=== PATIENT | female | born 1965 | race African-American/Black ===

== ENCOUNTER 2020-03-26 10:30 | Inpatient (IN) | payer BC, OTHER ==
--- OUTSIDE RECORDS SUMMARY | 2020-03-26 10:35 | XMS REPORT | Continuity of Care Document ---
:1965 Author Organization [facility] t Address [address] [place] [address] Care Team Providers Name Role Phone Unavailable Unavailable Unavailable Problems Condition Condition Condition Status Onset Resolution Last Treating Co mments Source Name Details Category Date Date Treatment Clinician Date Essential Essential Problem Active [facility] hypertensi Hypertensi [facility] Menopause Menopause Problem Active [facility] present [facility] Allergies, Adverse Reactions, Alerts This patient has no known allergies or adverse reactions. Social History Smoking Status Start Date Stop Date Source Never Smoker [facility] Medications Ordered Filled Start Stop Current Ordering Indication Dosage Frequency Signature Comments Components Source Medication Medication Date Date Medication? Clinician (SIG) Name Name amlodipine amlodipine No amlodipine [facility] 5 mg tablet 5 mg tablet 5 mg d a tablet [facility] aspirin 325 aspirin 325 No 1 Q1D aspirin [facility] mg tablet mg tablet 325 mg da Take 1 Take 1 tablet Medical tablet tablet Take 1 Group every day every day tablet by oral by oral every day route. route. by oral route. bumetanide bumetanide No bumetanide [facility] 2 mg tablet 2 mg tablet 2 mg d a tablet [facility] carvedilol carvedilol No carvedilol [facility] 25 mg 25 mg 25 mg da tablet tablet tablet [facility] clonidine clonidine No clonidine [facility] HCl 0.2 mg HCl 0.2 mg HCl 0.2 mg da tablet tablet tablet [facility] clonidine clonidine No clonidine [facility] HCl 0.3 mg HCl 0.3 mg HCl 0.3 mg da tablet tablet tablet [facility] Vital Signs Vital Name Observation Time Observation Value Comments Source BP Diastolic 2019-01-01 00:00:00 102 mm[Hg] [facility] Height 2019-01-01 00:00:00 66 [in_i] [facility] BMI (Body Mass 2019-01-01 00:00:00 40.9 kg/m2 [facility] Index) Group BP Systolic 2019-01-01 00:00:00 162 mm[facility]Hg[facility] Body Weight 2019-01-01 00:00:00 253.6 [lb_av] [facility] Procedures Procedure Date / Time Performed Performing Clinician Sour e unlisted imaging order 2019-01-01 00:00:00 [facility] Hysterectomy 2010-05-15 00:00:00 [facility] Plan of Care Planned Activity Planned Date Details Comments Source Diagnostic Test 2019-01-01 wet mount, vaginal [facility] Pending 00:00:00 [code = wet mount, Group vaginal] Diagnostic Test 2019-01-01 pap test, [facility] 00:00:00 thinprep, cervical Group [code = pap test, thinprep, cervical] Diagnostic Test 2019-01-01 urinalysis, [facility] 00:00:00 dipstick [code = Group urinalysis, dipstick] Encounters Start End Encounter Admission Attending Care Care Encounter Source Date/Time Date/Time Type Type Clinicians Facility Department ID 2019-01-01 2019-01-01 [facility] [place] - [id number] [facility] 00:00:00 00:00:00 [facility] MD: [address] [facility] [address], [place] [address] , Ph. [phone] Results Test Description Test Time Test Comments Results Result Comments Source Urinalysis macro (dipstick) panel - Urine 2019-01-01 10:18:3 4 Test Item Value Reference Range Interpretation Comme nts Leukocytes (test code = Leukocytes) Negative Nitrite (test code = Nitrite) negative Urobilinogen (test code = Urobilinogen) .2 Protein (test code = Protein) Negative pH (test code = pH) 6.0 Blood (test code = Blood) Negative Specific Mchenry (test code = Specific Mchenry) 1.015 Ketone (test code = Ketone) Negative Bilirubin (test code = Bilirubin) Negative Glucose (test code = Glucose) Negative Appearance (test code = Appearance) Clear Color (test code = Color) Yellow [facility]
[2020-03-26 12:22] LABS: Absolute Lymphocytes (CBC) 0.8 K/uL (0.7-4.9); Basophils % 0.5 % (0-1.3); Hematocrit 42.3 % (36.0-45.0); MPV 8.9 fL (7.6-11.3); RBC Red Blood Cell Count 4.88 M/uL (3.86-4.86)
[2020-03-26 12:37] LABS: Protime INR 1.22
--- NOTE | 2020-03-26 12:43 | RAD REPORT ---
EXAM DESCRIPTION: RAD - Chest Single View - 03/26/2020 12:30 pm CLINICAL HISTORY: SOB Chest pain. COMPARISON: Chest Pa And Lat (2 Views) dated 05/10/2018; Chest Single View dated 02/01/2017; CHEST PA AND LAT 2 VIEW dated 09/26/2007 FINDINGS: Portable technique limits examination quality. Minimal interstitial pulmonary edema. Heart is significantly prominent. No displaced fractures. IMPRESSION: Mild CHF versus volume overload.
[2020-03-26 12:51] LABS: ALT/SGPT 24 U/L (12-78); AST/SGOT 21 U/L (15-37); Alkaline Phosphatase 73 U/L (45-117); BUN Blood Urea Nitrogen 17 mg/dL (7-18); Bicarbonate 40 mmol/L (21-32); Bilirubin Direct 0.4 mg/dL (0-0.2); Glucose Level 104 mg/dL (74-106); Magnesium 2.2 mg/dL (1.8-2.4); NT PRO-BNP 1130 pg/mL (<125); Potassium 3.4 mmol/L (3.5-5.1); Protein, Total 8.2 g/dL (6.4-8.2); Sodium Level 139 mmol/L (136-145); Troponin (Emerg Dept Use Only) 0.31 ng/mL (0.0-0.045)
--- NOTE | 2020-03-26 15:00 | EDPHYS ---
Physician Documentation [facility] Name: Indra Larsen Age: 55 yrs Sex: Female : 1965 Arrival Date: 03/26/2020 Time: 10:37 Bed 24 Private MD: Torsten Sanders V ED Physician Mick Washington HPI: 03/26 18:15 This 55 yrs old Black Female presents to ER via Wheelchair with complaints of Shortness kdr Of Breath. 18:15 The patient has shortness of breath at rest, with light activity, that occurred at [facility] home. Onset: The symptoms/episode began/occurred gradually, 4 day(s) ago. Duration: The symptoms are continuous, and are steadily getting worse. The patient's shortness of breath is aggravated by coughing, exertion, light activity, walking, is alleviated by rest. 18:19 Associated signs and symptoms: Pertinent positives: Pertinent negatives: productive kdr cough, diaphoresis, loss of consciousness, numbness in extremities, visual changes. Severity of symptoms: At their worst the symptoms were mild in the emergency department the symptoms. The patient has experienced similar episodes in the past, a few times. The patient has not recently seen a physician. 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 - Social history:: Smoking status: Patient denies any tobacco usage or history of. ROS: 18:19 Constitutional: Negative for fever, chills, and weight loss, Eyes: Negative for injury, kdr pain, redness, and discharge, Neck: Negative for injury, pain, and swelling, Cardiovascular: Negative for chest pain, palpitations, and edema, Abdomen/GI: Negative for abdominal pain, nausea, vomiting, diarrhea, and constipation, Back: Negative for injury and pain, : Negative for injury, bleeding, discharge, and swelling, MS/Extremity: Negative for injury and deformity, Skin: Negative for injury, rash, and discoloration, Neuro: Negative for headache, weakness, numbness, tingling, and seizure activity. Psych: Negative for depression, anxiety, suicide ideation, homicidal ideation, and hallucinations, Allergy/Immunology: Negative for hives, rash, and allergies, Endocrine: Negative for neck swelling, polydipsia, polyuria, polyphagia, and marked weight changes, Hematologic/Lymphatic: Negative for swollen nodes, abnormal bleeding, and unusual bruising. 18:19 Respiratory: Positive for dyspnea on exertion, shortness of breath, Negative for hemoptysis, orthopnea, pleurisy, sputum production. Exam: 18:19 Constitutional: This is a well developed, well nourished patient who is awake, alert, kdr and in no acute distress. Head/Face: Normocephalic, atraumatic. Eyes: Pupils equal round and reactive to light, extra-ocular motions intact. Lids and lashes normal. Conjunctiva and sclera are non-icteric and not injected. Cornea within normal limits. Periorbital areas with no swelling, redness, or edema. Neck: Trachea midline, no thyromegaly or masses palpated, and no cervical lymphadenopathy. Supple, full range of motion without nuchal rigidity, or vertebral point tenderness. No Meningismus. Chest/axilla: Normal chest wall appearance and motion. Nontender with no deformity. No lesions are appreciated. Cardiovascular: Regular rate and rhythm with a normal S1 and S2. No gallops, murmurs, or rubs. Normal PMI, no JVD. No pulse deficits. Abdomen/GI: Soft, non-tender, with normal bowel sounds. No distension or tympany. No guarding or rebound. No evidence of tenderness throughout. Back: No spinal tenderness. No costovertebral tenderness. Full range of motion. Skin: Warm, dry with normal turgor. Normal color with no rashes, no lesions, and no evidence of cellulitis. MS/ Extremity: Pulses equal, no cyanosis. Neurovascular intact. Full, normal range of motion. Neuro: Awake and alert, GCS 15, oriented to person, place, time, and situation. Cranial nerves II-XII grossly intact. Motor strength 5/5 in all extremities. Sensory grossly intact. Cerebellar exam normal. Normal gait. Psych: Awake, alert, with orientation to person, place and time. Behavior, mood, and affect are within normal limits. 18:19 Respiratory: the patient does not display signs of respiratory distress, Respirations: Breath sounds: are clear throughout, The patient had a hypoxia to 70's with exertion. 18:39 ECG was reviewed by the Attending Physician. [facility] Vital Signs: 10:57 BP 166 / 115; Pulse 82; Resp 18; Temp 97.5; Pulse Ox 86% on R/A; Pain 0/10; hb 14:00 BP 161 / 87; Pulse 67; Resp 18 S; Temp 98.4(O); Pulse Ox 98% on 2 lpm NC; aa5 16:00 BP 152 / 79; Pulse 70; Resp 18 S; Pulse Ox 100% on 2 lpm NC; aa5 18:00 BP 149 / 94; Pulse 83; Resp 18; Pulse Ox 97% on 3 lpm NC; vg1 19:45 BP 126 / 76; Pulse 73; Resp 18; Pulse Ox 100% on 2 lpm NC; wh 21:00 BP 105 / 64; Pulse 69; Resp 18; Pulse Ox 98% on 2 lpm NC; wh 22:30 BP 91 / 53; Pulse 68; Resp 18; Pulse Ox 98% on 2 lpm NC; 03/27 02:01 Weight 112.94 kg (M); bb MDM: 03/26 14:59 Patient medically screened. [facility] 18:27 Data reviewed: vital signs, nurses notes, lab test result(s), radiologic studies. [facility] 03/26 11:51 Order name: Basic Metabolic Panel; Complete Time: 14:40 [facility] 03/26 11:51 Order name: CBC with Diff; Complete Time: 14:40 [facility] 03/26 11:51 Order name: LFT's; Complete Time: 14:40 [facility] 03/26 11:51 Order name: Magnesium; Complete Time: 14:40 [facility] 03/26 11:51 Order name: NT PRO-BNP; Complete Time: 14:40 [facility] 03/26 11:51 Order name: PT-INR; Complete Time: 14:40 [facility] 03/26 11:51 Order name: Troponin (emerg Dept Use Only); Complete Time: 14:40 [facility] 03/26 11:51 Order name: XRAY Chest (1 view); Complete Time: 14:40 [facility] 03/26 14:29 Order name: Urine Dipstick--Ancillary (enter results) 03/26 14:57 Order name: CT Chest For PE Angio; Complete Time: 15:44 kdr 03/26 16:45 Order name: SARS-COV-2 RT PCR EDIN 03/27 02:59 Order name: Troponin I [facility] 03/27 06:38 Order name: Troponin I [facility] 03/26 11:51 Order name: EKG; Complete Time: 11:52 dm5 03/26 11:51 Order name: Cardiac monitoring; Complete Time: 12:16 dm5 03/26 11:51 Order name: EKG - Nurse/Tech; Complete Time: 12:16 dm5 03/26 11:51 Order name: IV Saline Lock; Complete Time: 12:32 dm5 03/26 11:51 Order name: Labs collected and sent; Complete Time: 12:32 dm5 03/26 11:51 Order name: O2 Per Protocol; Complete Time: 12:16 dm5 03/26 11:51 Order name: O2 Sat Monitoring; Complete Time: 12:16 5 03/26 12:28 Order name: Labs - recollect needed: recollect c7; Complete Time: 12:31 bd 03/26 14:15 Order name: Urine Dipstick-Ancillary (obtain specimen); Complete Time: 14:15 aa 03/26 16:38 Order name: Diet Heart Healthy; Complete Time: 16:39 aa5 EC:39 Rate is 69 beats/min. Rhythm is regular, Sinus Rhythm with No ectopy. QRS [place] is kdr Normal. CA interval is normal. QRS interval is normal. Clinical impression: NSR w/ Non-specific ST/T Changes. Administered Medications: 16:10 Drug: Lasix 40 mg Route: IVP; Site: left antecubital; aa5 17:30 Follow up: Response: No adverse reaction vg1 16:10 Drug: Aspirin Chewable Tablet 324 mg Route: PO; aa5 17:30 Follow up: Response: No adverse reaction vg1 16:10 Drug: PlaVIX 300 mg Route: PO; aa5 17:30 Follow up: Response: No adverse reaction vg1 Disposition: 03/26/20 14:59 Hospitalization ordered by Torsten Sanders for Observation. Preliminary diagnosis are Shortness of breath, Hypoxia on exertion (75%). - Bed requested for Telemetry/MedSurg (observation). - Status is Observation. eb - Condition is Fair. - Problem is new. - Symptoms have improved. Signatures: Dispatcher [employer] EDMS Mi Emerson Corinne Arboleda, RN RN dm5 Mick Washington MD MD [facility] Sanjuana Neal, RN RN aa5 Marysol Romero, RN RN Jacquelin Padilla, RN RN Xiomy Hayes, Shelly RN vg1 Corrections: (The following items were deleted from the chart) 15:18 14:43 CORONAVIRUS+MR.LAB.BRZ ordered. EDMS EDMS 22:42 14:59 Hospitalization Ordered by Torsten Sanders MD for Observation. Preliminary diagnosis cg is Shortness of breath; Hypoxia on exertion (75%). Bed requested for Telemetry/MedSurg (observation). Status is Observation. Condition is Fair. Problem is new. Symptoms have improved. kdr 03/27 07:30 11 22:42 03/26/2020 14:59 Hospitalization Ordered by Torsten Sanders MD for eb Observation. Preliminary diagnosis is Shortness of breath; Hypoxia on exertion (75%). Bed requested for [facility] ER HOLD. Status is Observation. Condition is Fair. Problem is new. Symptoms have improved. cg 03/27 07:56 07:30 03/26/2020 14:59 Hospitalization Ordered by Torsten Sanders MD for Observation. eb Preliminary diagnosis is Shortness of breath; Hypoxia on exertion (75%). Bed requested for Telemetry/MedSurg (observation). Status is Observation. Condition is Fair. Problem is new. Symptoms have improved. eb
--- NOTE | 2020-03-26 15:00 | ER ---
Nurse's Notes [facility] Name: Indra Larsen Age: 55 yrs Sex: Female : 1965 Arrival Date: 03/26/2020 Time: 10:37 Bed 24 Private MD: Torsten Sanders V Diagnosis: Shortness of breath;Hypoxia on exertion (75%) Presentation: 03/26 10:57 Chief complaint: SOB x 4 days. Hx of CHF. Coronavirus screen: At this time, the client hb does not indicate any symptoms associated with coronavirus-19. Ebola Screen: No symptoms or risks identified at this time. Initial Sepsis Screen: Does the patient meet any 2 criteria? No. Patient's initial sepsis screen is negative. Does the patient have a suspected source of infection? No. Patient's initial sepsis screen is negative. Risk Assessment: Do you want to hurt yourself or someone else? Patient reports no desire to harm self or others. Onset of symptoms was March 23, 2020. 10:57 Method Of Arrival: Wheelchair hb 10:57 Acuity: TRUDI 2 hb Triage Assessment: 19:30 Respiratory: Onset: The symptoms/episode began/occurred gradually, the patient has mild wh shortness of breath. 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 - Social history:: Smoking status: Patient denies any tobacco usage or history of. Screenin:05 Abuse screen: Denies threats or abuse. Nutritional screening: No deficits noted. aa5 Tuberculosis screening: No symptoms or risk factors identified. Fall Risk None identified. Assessment: 14:05 General: Appears comfortable, Behavior is calm, cooperative. Pain: Denies pain. Neuro: aa5 Level of Consciousness is awake, alert, obeys commands, Oriented to person, place, time, situation. Cardiovascular: Reports intermittent lower leg swelling after sitting for long periods of time at work. No leg swelling noted at this time. Heart tones S1 S2 present Rhythm is sinus rhythm. Respiratory: Reports shortness of breath on exertion Airway is patent Respiratory effort is even, unlabored, Respiratory pattern is regular, symmetrical, Breath sounds are diminished bilaterally. GI: Abdomen is round obese, Bowel sounds present X 4 quads. Abd is soft and non tender X 4 quads. : No signs and/or symptoms were reported regarding the genitourinary system. EENT: No signs and/or symptoms were reported regarding the EENT system. Derm: Skin is dry, Skin is normal, Skin temperature is warm. Musculoskeletal: Range of motion: intact in all extremities. 15:05 Reassessment: Pt to CT via stretcher . aa5 16:05 Reassessment: Dr. Washington speaking to patient about need for admission. . aa5 16:05 Neuro: Level of Consciousness is awake, alert, obeys commands, Oriented to person, aa5 place, time, situation. Cardiovascular: Rhythm is sinus rhythm. Respiratory: Airway is patent Respiratory effort is even, unlabored, Respiratory pattern is regular, symmetrical. Derm: Skin is dry, Skin is normal, Skin temperature is warm. 16:30 Reassessment: Pt assisted to bedside commode. Pt's O2 sat was noted to be 90% via 2 L aa5 NC upon getting out of bed, pt denies increased SOB at this time. Pt placed back in bed. Awaiting room assignment, pt notified of wait time. . 17:30 General: Appears in no apparent distress. comfortable, Behavior is calm, cooperative. em Pain: Denies pain. Neuro: Level of Consciousness is awake, alert, obeys commands, Oriented to person, place, time, situation, Gait is steady. Respiratory: Reports shortness of breath on exertion Airway is patent Respiratory effort is even, unlabored, Respiratory pattern is regular, symmetrical. Derm: Skin is intact, is healthy with good turgor, Skin is pink, warm \T\ dry. Musculoskeletal: Range of motion: intact in all extremities. 19:15 General: Appears in no apparent distress. Behavior is calm, cooperative, appropriate wh for age. Pain: Denies pain. Neuro: Level of Consciousness is awake, alert, obeys commands, Oriented to person, place, time, situation, Appropriate for age. Cardiovascular: Heart tones S1 S2. Respiratory: Airway is patent Respiratory effort is even, unlabored, Respiratory pattern is regular, symmetrical, Breath sounds are diminished bilaterally. GI: Abdomen is round obese, Abd is soft and non tender. : No signs and/or symptoms were reported regarding the genitourinary system. EENT: No signs and/or symptoms were reported regarding the EENT system. Derm: Skin is intact, is healthy with good turgor, Skin is pink, warm \T\ dry. normal. Musculoskeletal: Circulation, motion, and sensation intact. 21:00 Reassessment: Patient appears in no apparent distress at this time. No changes from previously documented assessment. Patient and/or family updated on plan of care and expected duration. Pain level reassessed. Patient is alert, oriented x 3, equal unlabored respirations, skin warm/dry/pink. 22:30 Reassessment: Patient appears in no apparent distress at this time. Patient and/or family updated on plan of care and expected duration. Pain level reassessed. Patient is alert, oriented x 3, equal unlabored respirations, skin warm/dry/pink. Vital Signs: 10:57 BP 166 / 115; Pulse 82; Resp 18; Temp 97.5; Pulse Ox 86% on R/A; Pain 0/10; hb 14:00 BP 161 / 87; Pulse 67; Resp 18 S; Temp 98.4(O); Pulse Ox 98% on 2 lpm NC; aa5 16:00 BP 152 / 79; Pulse 70; Resp 18 S; Pulse Ox 100% on 2 lpm NC; aa5 18:00 BP 149 / 94; Pulse 83; Resp 18; Pulse Ox 97% on 3 lpm NC; vg1 19:45 BP 126 / 76; Pulse 73; Resp 18; Pulse Ox 100% on 2 lpm NC; wh 21:00 BP 105 / 64; Pulse 69; Resp 18; Pulse Ox 98% on 2 lpm NC; wh 22:30 BP 91 / 53; Pulse 68; Resp 18; Pulse Ox 98% on 2 lpm NC; 03/27 02:01 Weight 112.94 kg (M); bb ED Course: 03/26 10:37 Patient arrived in ED. rg4 10:37 Torsten Sanders MD is Private Physician. rg4 10:58 Triage completed. hb 10:59 Arm band placed on. hb 11:13 Mick Washington MD is Attending Physician. kdr 11:51 Corinne Reina, RN is Primary Nurse. dm5 12:11 EKG done, by ED staff, reviewed by Mick Washington MD. jp3 12:16 Placed in gown. Bed in low position. Call light in reach. Side rails up X 1. Warm jp3 blanket given. Verbal reassurance given. library monitor on. Pulse ox on. NIBP on. 12:16 Oxygen administration via nasal cannula \T\ 2L/min. jp3 12:33 XRAY Chest (1 view) In Process Unspecified. EDMS 14:00 Report received from NICOLA Sun. aa5 14:48 No provider procedures requiring assistance completed. aa5 14:58 Torsten Sanders MD is Hospitalizing Provider. kdr 15:02 COVID-19 swab collected and sent to lab. aa5 15:16 CT Chest For PE Angio In Process Unspecified. EDMS 17:30 Report given to Adolfo Morton RN. aa5 22:30 Patient admitted, IV remains in place. Administered Medications: 16:10 Drug: Lasix 40 mg Route: IVP; Site: left antecubital; aa5 17:30 Follow up: Response: No adverse reaction vg1 16:10 Drug: Aspirin Chewable Tablet 324 mg Route: PO; aa5 17:30 Follow up: Response: No adverse reaction vg1 16:10 Drug: PlaVIX 300 mg Route: PO; aa5 17:30 Follow up: Response: No adverse reaction vg1 Outcome: 14:59 Decision to Hospitalize by Provider. kdr 22:30 Admitted to ER Hold. Please see [facility] for further documentation. 22:30 Condition: stable 22:30 Instructed on the need for admit. 03/27 07:56 Patient left the ED. eb Signatures: Dispatcher [employer] EDAK Corinne Reina, NICOLA RN dmMick Lu MD MD kdr Munoz, Edgar, Basia Thomas RN RN Sanjuana Daniel, RN RN aa5 Jacquelin Padilla, Grace Hale RN 4 Wally Mai Xiomy Hayes Suman Andersen jp3 Shelly Romero, RN RN vg1 Corrections: (The following items were deleted from the chart) 03/26 14:48 14:05 Cardiovascular: Reports intermittent lower leg swelling after sitting for long aa5 periods of time at work. Heart tones S1 S2 present Rhythm is sinus rhythm aa5 16:16 14:00 BP 161 / 87; Pulse 67bpm; Resp 18bpm; Spontaneous; Pulse Ox 98% RA; Temp 98.4F aa5 Oral; aa5 20:07 19:45 BP 126 / 76; Pulse 73bpm; Resp 18bpm; Pulse Ox 100% RA; [facility] 23:47 23:46 Respiratory: Onset: The symptoms/episode began/occurred [facility]
--- NOTE | 2020-03-26 15:30 | RAD REPORT ---
EXAM DESCRIPTION: CT - Chest For Pe Angio - 03/26/2020 3:16 pm CLINICAL HISTORY: sob COMPARISON: 2016 TECHNIQUE: Dynamically enhanced axial 3 mm thick images of the chest were obtained during administra tion of <100> mL Isovue 370 IV contrast. Coronal and oblique reconstruction images were generated and reviewed. Exam utilizes a protocol for optimal evaluation of pulmonary arterial tree. Maximum intensity projections 3D imaging was utilized All CT scans are performed using dose optimization technique as appropriate and may include automated exposure control or mA/KV adjustment according to patient size. FINDINGS: A pulmonary embolus is not seen. A thoracic aortic aneurysm is not noted. The heart is moderately to markedly enlarged A pleural effusion is not seen. A small to moderate pericardial effusion is seen. Mild bilateral ground-glass opacities IMPRESSION: Negative for a pulmonary embolism. Mild pulmonary ground-glass bilaterally may indicate mild pulmonary edema Small to moderate pericardial effusion
[2020-03-26] MEDS ORDERED: FUROSEMIDE 40 MG/4 ML VIAL ONE (16:01)
[2020-03-26] MEDS ORDERED: CLOPIDOGREL 75 MG TABLET ONE (16:16)
[2020-03-26] MEDS ORDERED: ASPIRIN 81 MG CHEWABLE TABLET ONE (16:16)
[2020-03-26 16:53] LABS: Urine Blood NEGATIVE (NEG); Urine Glucose NEGATIVE (NEG); Urine Protein NEGATIVE (NEG); Urine Specific Gravity 1.015 (1.005-1.030)
[2020-03-27] MEDS ORDERED: ALBUTEROL 2.5 MG/3 ML NEB SOL NEB PRN ×2 (02:08→17:00)
[2020-03-27] MEDS ORDERED: ONDANSETRON 4 MG/2 ML VIAL IV PRN (02:08)
[2020-03-27] MEDS ORDERED: MORPHINE 2 MG/ML SYR IV PRN (02:08)
[2020-03-27] MEDS ORDERED: IPRATROPIUM BROM 0.5MG/2.5ML NEB PRN (02:08)
[2020-03-27] MEDS ORDERED: ACETAMINOPHEN 500 MG TAB PO PRN (02:08)
[2020-03-27] MEDS ORDERED: ENOXAPARIN 100 MG/ML SYR SQ ONE (02:21)
[2020-03-27] MEDS: carvediloL 3.125 MG TAB PO SCH ×2 (06:00→17:29)
[2020-03-27] MEDS: FUROSEMIDE 20 MG/ 2ML VIAL IV SCH ×2 (08:18→17:30)
[2020-03-27] MEDS: ASPIRIN EC 81 MG TAB PO SCH (08:18)
[2020-03-27] MEDS: CLOPIDOGREL 75 MG TABLET PO SCH (08:18)
[2020-03-27] MEDS: FAMOTIDINE 20 MG/2 ML VIAL IV SCH ×2 (08:18→20:20)
[2020-03-27] MEDS ORDERED: PNEUMOCOCCAL VACCINE 0.5 ML IMVAC ONE (09:00)
[2020-03-27] MEDS ORDERED: ENOXAPARIN 100 MG/ML SYR SQ SCH ×2 (09:00)
[2020-03-27] MEDS ORDERED: INFLUENZA VACCINE (for 3y+) 0.5 ML DOSE IMVAC ONE (09:00)
--- NOTE | 2020-03-27 13:15 | ECHO ---
HEIGHT: 5 ft 6 in WEIGHT: 249 lb 0 oz DATE OF STUDY: 03/27/[address]: Irving Medina MD 2-DIMENSIONAL: YES M.MODE: YES DOPPLER: YES COLOR FLOW: YES TDS: NO PORTABLE: NO DEFINITY: NO BUBBLE STUDY: NO DIAGNOSIS: CONGESTIVE HEART FAILURE CARDIAC HISTORY: CATHERIZATION: NO SURGERY: NO PROSTHETIC VALVE: NO PACEMAKER: NO MEASUREMENTS (cm) DIASTOLIC (NORMALS) SYSTOLIC (NORMALS) IVSd 1.6 (0.6-1.2) LA Diam 3.3 (1.9-4.0) LVEF 61% LVIDd 3.6 (3.5-5.7) LVIDs 2.4 (2.0-3.5) %FS 32% LVPWd 1.7 (0.6-1.2) Ao Diam 2.9 (2.0-3.7) 2 DIMENSIONAL ASSESSMENT: RIGHT ATRIUM: NORMAL LEFT ATRIUM: NORMAL RIGHT VENTRICLE: NORMAL LEFT VENTRICLE: NORMAL TRICUSPID VALVE: NORMAL MITRAL VALVE: NORMAL PULMONIC VALVE: NORMAL AORTIC VALVE: SCLEROSIS PERICARDIAL EFFUSION: NONE AORTIC ROOT: NORMAL LEFT VENTRICULAR WALL MOTION: NORMAL. DOPPLER/COLOR FLOW: MILD TRICUSPID REGURGITATION - NORMAL RIGHT VENTRICULAR SYSTOLIC PRESSURE. COMMENTS: NORMAL LEFT VENTRICULAR SIZE AND FUNCTION. NO WALL MOTION ABNORMALITY. TRACE OF EFFUSION. AORTIC SCLEROSIS. NO STENOSIS. TECHNOLOGIST: ELIO GAMBLE
--- NOTE | 2020-03-27 16:51 | P.HP ---
Certification for Inpatient Patient admitted to: Inpatient With expected LOS: >2 Midnights Practitioner: I am a practitioner with admitting privileges, knowledge of patient current condition, hospital course, and medical plan of care. Services: Services provided to patient in accordance with Admission requirements found in Title 42 Section 412.3 of the Code of Federal Regulations Patient History Date of Service: 03/27/20 Reason for admission: SHORT OF BREATH History of Present Illness: BINU IS A PATIENT WITH SEVERE HTN. DIASTOLIC CHF, HISTORY OF CVA WITH SENSOR DEFICIT TO L SIDE OF BODY THAT IS STILL THERE, COMES WITH DYSPNEA AT REST. SHE DENIES ANY CHEST PAIN. SHE IS HYPOXIC AT 66% ON RA. ER DOCTOR FOUND HER TO HAVE CHF THAT WAS MILD. I ASKED TO DO CT ANGIO MILD CHF WILL NOT EXPLAIN HYPOXIA OF 66%. PE STUDY IS NEG FOR PE OR PNEUMONIA OR MASS. SHE IS STILL HYPOXIC AT 66% ON RA SO WE WILL KEEP HER HERE LONGER. Allergies No Known Allergies Allergy (Unverified 02/01/17 13:45) Home Medications: Aspirin [Aspirin EC 325 MG] 325 mg PO DAILY 03/27/20 Carvedilol [Coreg] 25 mg PO BID 03/27/20 Clonidine HCl [Catapres] 0.3 mg PO BID 03/27/20 Ergocalciferol (Vitamin D2) [Vitamin D2] 1 cap PO SEECOM 03/27/20 Furosemide 20 mg PO [id number] #90 tablet 03/27/20 Hydralazine HCl 25 mg PO BID 03/27/20 Irbesartan/Hydrochlorothiazide [Avalide 300-12.5 mg Tablet] 1 tab PO DAILY 03/27/20 Rosuvastatin Calcium 10 mg PO DAILY 03/27/20 - Past Medical/Surgical History Has patient received pneumonia vaccine in the past: No Diabetic: No -: CVA 2011 -: HTN -: PARTIAL HYSTERECTOMY -: ORTIZ - Family History Father -: Lung disease, Cancer Notes: LUNG CANCER - Social History Smoking Status: Unknown if ever smoked Alcohol use: No CD- Drugs: No Caffeine use: No Place of Residence: Home Review of Systems 10-point ROS is otherwise unremarkable General: Weakness, Malaise Respiratory: Shortness of Breath Physical Examination - Vital Signs Temperature: 97.8 F Blood Pressure: 130/69 Pulse: 83 Respirations: 18 Pulse Ox (%): 93 - Physical Exam General: Acute distress, Moderate distress, Obese HEENT: Atraumatic, PERRLA, Mucous membr. moist/pink, EOMI, Sclerae nonicteric Neck: Supple, 2+ carotid pulse no bruit, No LAD, Without JVD or thyroid abnormality Respiratory: Clear to auscultation bilaterally, Diminished Cardiovascular: Regular rate/rhythm, Normal S1 S2 Gastrointestinal: Normal bowel sounds, No tenderness Musculoskeletal: No tenderness Integumentary: No rashes Neurological: Normal gait, Normal speech, Normal strength at 5/5 x4 extr, Normal tone, Normal affect Lymphatics: No axilla or inguinal lymphadenopathy Assessment and Plan - Problems (Diagnosis) (1) Diastolic CHF, acute Current Visit: Yes Status: Acute Plan: THIS IS A NEW PROBLEM RELATED TOHTN. AGREE WITH LASIX IV BID. ECHO IS NORMAL. NO SIGNS OF PUOLMONARY HTN. (2) Hypoxia Current Visit: Yes Status: Acute (3) Asthma Current Visit: Yes Status: Acute Plan: THIS IS A NEW PROBLEM FOR HER. SHE IS NOT A SMOKER. SHE IS STILL VERY HYPOXIA. I DON'T SEE ANY OTHER REASONS. CHF IS MINOR COMPRED TO HER HYPOXIA. THERE IS NO PE, PNEUMONIA, COPD OR PULMONARY HTN. START NEBULZIER AND STEROIDS IV. (4) History of CVA (cerebrovascular accident) Onset Date: 02/02/17 Current Visit: No Status: Chronic Plan: NO CHANGES THIS HAPPENED A FEW YEARS AGO. RESIDUAL SI PARESTHESIA OF L SIDE OF BODY. - Advance Directives Does patient have a Living Will: No Does patient have a Durable POA for Healthcare: No
[2020-03-27] MEDS: METHYLPREDNISOLONE 40 MG INJ IV SCH (17:30)
[2020-03-27] MEDS: LEVALBUTEROL 0.63 MG/3 ML NEB NEB SCH (19:35)
[2020-03-28] MEDS: LEVALBUTEROL 0.63 MG/3 ML NEB NEB SCH ×4 (00:55→19:40)
[2020-03-28] MEDS: METHYLPREDNISOLONE 40 MG INJ IV SCH ×4 (00:57→17:46)
[2020-03-28] MEDS: carvediloL 3.125 MG TAB PO SCH ×2 (05:25→17:46)
[2020-03-28 05:49] LABS: Absolute Lymphocytes (CBC) 0.4 K/uL (0.7-4.9); Basophils % 0.2 % (0-1.3); Hematocrit 46.8 % (36.0-45.0); Lymphocytes % 6.4 % (15.3-44.8); MPV 8.3 fL (7.6-11.3); RBC Red Blood Cell Count 5.35 M/uL (3.86-4.86)
[2020-03-28 06:05] LABS: BUN Blood Urea Nitrogen 19 mg/dL (7-18); Glucose Level 147 mg/dL (74-106); NT PRO-BNP 192 pg/mL (<125); Potassium 3.7 mmol/L (3.5-5.1); Sodium Level 141 mmol/L (136-145)
[2020-03-28 06:07] LABS: Bicarbonate 44 mmol/L (21-32)
[2020-03-28] MEDS ORDERED: carvediloL 25 MG TAB PO SCH (09:00)
[2020-03-28] MEDS ORDERED: HOME MED 1 EA UNK (Aspirin [Aspirin Ec 325 Mg] 325 MG) PO SCH (09:00)
[2020-03-28] MEDS: HYDRALAZINE HCL 25 MG TABLET PO SCH ×2 (09:09→21:43)
[2020-03-28] MEDS: ROSUVASTATIN 10 MG TAB PO SCH (09:09)
[2020-03-28] MEDS: CLOPIDOGREL 75 MG TABLET PO SCH (09:09)
[2020-03-28] MEDS: FAMOTIDINE 20 MG/2 ML VIAL IV SCH ×2 (09:09→21:44)
[2020-03-28] MEDS: ASPIRIN EC 81 MG TAB PO SCH (09:09)
[2020-03-28] MEDS: CLONIDINE HCL 0.3 MG TAB PO SCH ×2 (09:09→21:42)
--- NOTE | 2020-03-28 09:23 | RAD REPORT ---
EXAM DESCRIPTION: RAD - Chest Single View - 03/28/2020 8:12 am CLINICAL HISTORY: Chest Pain COMPARISON: March 26 portable chest, March 26 CT chest TECHNIQUE: AP portable chest image was obtained 03/28/2020 8:12 am . FINDINGS: Lung volumes remain low. Portable technique, low lung volumes and large body habitus limit the exam. Prominent enlargement of the cardiac silhouette remains. Central vasculature is prominent. Hazy lung parenchymal opacities are present. Trachea is midline. No measurable pleural effusion and no pneumothorax. No acute bony abnormality seen. No acute aortic findings suspected. IMPRESSION: Limited portable exam continues to show cardiomegaly and probable mild failure or volume overload.
[2020-03-28 09:53] LABS: Anisocytosis 1+; Blood Morphology Comment NOTED (NOT SEEN); Platelet Estimate ADEQ; Platelets, Giant PRESENT
[2020-03-28] MEDS ORDERED: INFLUENZA VACCINE (for 3y+) 0.5 ML DOSE IMVAC ONE (10:00)
[2020-03-28 16:53] LABS: Arterial Blood Carboxyhemoglob 1.6 % (0-1.5); Blood Gas Oxyhemoglobin 84.5 % (94-97); Blood O2 Saturation 86.7 % (92-98.5)
--- NOTE | 2020-03-28 16:55 | P.PN ---
Subjective Date of Service: 03/28/20 Chief Complaint: SHORT OF BREATH Subjective: Improving SHE DOES NOT FEEL REALLY BAD BUT HER OXYGEN SATURATION DROPS TO 66% WITHOUT SUPPLY. Review of Systems 10-point ROS is otherwise unremarkable General: Weakness Physical Examination - Vital Signs Temperature: 98 F Blood Pressure: 135/67 Pulse: 97 Respirations: 18 Pulse Ox (%): 92 - Physical Exam General: Oriented x3, Obese HEENT: Atraumatic, PERRLA, EOMI Neck: Supple, JVD not distended Respiratory: Clear to auscultation bilaterally, Normal air movement Cardiovascular: Regular rate/rhythm, Normal S1 S2 Gastrointestinal: Normal bowel sounds, No tenderness Musculoskeletal: No tenderness Integumentary: No rashes Neurological: Normal speech, Normal tone, Normal affect Lymphatics: No axilla or inguinal lymphadenopathy - Studies Medications List Reviewed: Yes Assessment And Plan - Current Problems (Diagnosis) (1) Diastolic CHF, acute Current Visit: Yes Status: Acute Plan: THIS IS A NEW PROBLEM RELATED TOHTN. AGREE WITH LASIX IV BID. ECHO IS NORMAL. NO SIGNS OF PUOLMONARY HTN. (2) Hypoxia Current Visit: Yes Status: Acute Plan: SHE HAS NO PNEUMONIA, PE, FIBROSIS, AND HAS VERY MILD AMOUNT OF FLUID IN LUNGS. THIS IS NOT ABLE TO EXPLAIN SEVERE HYPOXIA. SHE MAY HAVE SLEEP APNEA BUT SHE HAS NO PULMONARY HTN ON ECHOCARDIOGRAM. SHE MAY HAVE ASTHMA BUT HAS NO RHONCHI AND WHEEZES. I STARTED STEROIDS YESTERDAY AND SHE HAS BEEN ABLE TO LOWER OXYGEN USE TO 3 LT. WILL FU IN AM. ABG ORDER TODAY. (3) Asthma Current Visit: Yes Status: Acute Plan: THIS IS A NEW PROBLEM FOR HER. SHE IS NOT A SMOKER. SHE IS STILL VERY HYPOXIA. I DON'T SEE ANY OTHER REASONS. CHF IS MINOR COMPRED TO HER HYPOXIA. THERE IS NO PE, PNEUMONIA, COPD OR PULMONARY HTN. START NEBULZIER AND STEROIDS IV. (4) History of CVA (cerebrovascular accident) Onset Date: 02/02/17 Current Visit: No Status: Chronic Plan: NO CHANGES THIS HAPPENED A FEW YEARS AGO. RESIDUAL SI PARESTHESIA OF L SIDE OF BODY.
--- NOTE | 2020-03-28 19:03 | CON ---
Date of Consultation: 03/27/2020 Reason For Consultation: Dyspnea and possible cardiomyopathy. History Of Present Illness: Ms. Larsen is a 55-year-old black woman, who has a history of obesity, h ypertension, and chronic diastolic congestive heart failure. A heart catheterization that was done i n January of 2017 showed very mild coronary artery disease. She came in with shortness of breath. She had a CT angiogram that showed negative pulmonary embolus, however, she had a ground-glass bilat erally maybe indicating mild pulmonary edema. She also has small to moderate pericardial effusion. Her chest x-ray showed mild volume overload. She denied any chest pain, mainly came in with PND, ort hopnea, and shortness of breath. Denied any palpitation or syncope. Denied any fever or chills. Past Medical History: As stated above. Allergies: NONE. Review of Systems: Negative. Social History: Negative. Family History: Noncontributory. Medications: At home include carvedilol, clonidine, and lisinopril. Physical Examination: General: When I saw her, her pressure was 159/85, her pulse is 89 and sinus rhythm. She was afebril e at 97.8, has a 98% oxygen saturation on 4 L with adequate I's and O's. HEENT: Negative. Neck: Supple. No bruit. Chest: Clear to auscultation and percussion. Cardiac: Regular rhythm and rate with an S4 gallops. No murmurs or rubs. Abdomen: Benign. Extremities: No clubbing or cyanosis. She had trace edema. Diagnostic Data: Her CT angiogram and her chest x-ray were stated earlier. Her creatinine is 0.75. She is not anemic. Her hemoglobin is 14.6. Her troponin was 0.30. Her BNP was 1130. Impression And Plan: 1.Possible acute on chronic diastolic congestive heart failure. 2.Elevated troponin and BNP secondary to congestive heart failure. 3.Obesity. 4.Hypertension. 5.Dyslipidemia. The case was discussed with Dr. Sanders in details. An echocardiogram has been ordered. I agree with her present regimen, which include aspirin, Plavix, Lovenox, Lasix inhalers. We will see what her ec hocardiogram shows before making further decisions. MAUREEN/MARINA Voice ID: [id number] Report ID: [id number]
--- NOTE | 2020-03-28 21:24 | PN ---
Date of Progress Note: 03/28/2020 Ms. Larsen had come in with shortness of breath, elevated troponin, slightly elevated BNP. We though t that this is secondary to acute on chronic diastolic congestive heart failure. She had moderate pe ricardial effusion by CT scan. However, an echocardiogram that was done yesterday showed normal wall motion, normal ejection fraction, aortic sclerosis without stenosis, and only a trace pericardial ef fusion. The patient, however, still remains very dyspneic. The case was discussed with Dr. Sanders. I think steroids have been started. I think if her symptoms do not improve, we should strongly consi rani either a stress test or a catheterization to rule out any significant coronary artery disease or other cardiomyopathies. Certainly, a stress test may be unreasonable. MAUREEN/MARINA Voice ID: [id number] Report ID: [id number]
[2020-03-28] MEDS: carvediloL 25 MG TAB PO SCH (21:43)
[2020-03-29] MEDS: METHYLPREDNISOLONE 40 MG INJ IV SCH ×4 (00:24→18:43)
[2020-03-29] MEDS: LEVALBUTEROL 0.63 MG/3 ML NEB NEB SCH ×4 (00:50→19:20)
[2020-03-29] MEDS: carvediloL 25 MG TAB PO SCH ×2 (05:44→18:42)
--- NOTE | 2020-03-29 07:48 | EKG ---
Test Date: 2020-03-27 Test Time: 02:45:24 Telemarketing Supervisor: MEASUREMENT RESULTS: Intervals: Rate: 70 LA: 174 QRSD: 108 QT: 448 QTc: 483 [place]: P: 54 LA: 174 QRS: 74 T: 63 INTERPRETIVE STATEMENTS: Normal sinus rhythm Incomplete left bundle branch block T wave abnormality, consider anterior ischemia Prolonged QT Abnormal ECG Compared to ECG 03/26/2020 12:11:09 Left bundle-branch block now present T-wave abnormality still present Possible ischemia still present Electronically Signed On 03-29-20 07:41:42 HUMAN SERVICES ASSISTANT by Jacques Rodgers
--- NOTE | 2020-03-29 07:50 | EKG ---
Test Date: 2020-03-26 Test Time: 12:11:09 Transition Rn: LEIGHANN MEASUREMENT RESULTS: Intervals: Rate: 69 NH: 158 QRSD: 104 QT: 446 QTc: 477 [place]: P: 47 NH: 158 QRS: 74 T: 93 INTERPRETIVE STATEMENTS: Normal sinus rhythm T wave abnormality, consider anterior ischemia Prolonged QT Abnormal ECG Compared to ECG 02/02/2017 06:58:38 T-wave abnormality now present Possible ischemia now present Prolonged QT interval now present Electronically Signed On 03-29-20 07:42:08 SUPERVISOR AREA by Jacques Rodgers
[2020-03-29] MEDS: CLOPIDOGREL 75 MG TABLET PO SCH (08:29)
[2020-03-29] MEDS: ROSUVASTATIN 10 MG TAB PO SCH (08:29)
[2020-03-29] MEDS: ASPIRIN EC 325 MG TABLET PO SCH (08:29)
[2020-03-29] MEDS: CLONIDINE HCL 0.3 MG TAB PO SCH ×2 (08:29→21:59)
[2020-03-29] MEDS: FAMOTIDINE 20 MG/2 ML VIAL IV SCH ×2 (08:30→22:00)
[2020-03-29] MEDS: HYDRALAZINE HCL 25 MG TABLET PO SCH ×3 (08:39→21:59)
--- NOTE | 2020-03-29 14:07 | P.PN ---
Subjective Date of Service: 03/29/20 Chief Complaint: SHE FEELS A LOT BETTER AFTER BIPAP USE Subjective: Improving SHE DOES NOT FEEL REALLY BAD BUT HER OXYGEN SATURATION DROPS TO 66% WITHOUT SUPPLY. I HAD HER USE BIPAP AND SHE SLEPT WELL , FELT GREAT AFTER. SHE SAYS SHE HAS NOT BEEN SLEEPING GOOD. Review of Systems 10-point ROS is otherwise unremarkable Physical Examination - Vital Signs Temperature: 97.9 F Blood Pressure: 178/98 Pulse: 70 Respirations: 20 Pulse Ox (%): 97 - Physical Exam General: Mild distress, Obese HEENT: Atraumatic, PERRLA, EOMI Neck: Supple, JVD not distended Respiratory: Diminished Cardiovascular: Regular rate/rhythm, Normal S1 S2 Gastrointestinal: Normal bowel sounds, No tenderness Musculoskeletal: No tenderness Integumentary: No rashes Neurological: Normal speech, Normal tone, Normal affect Lymphatics: No axilla or inguinal lymphadenopathy - Studies Medications List Reviewed: Yes Assessment And Plan - Current Problems (Diagnosis) (1) Diastolic CHF, acute Current Visit: Yes Status: Acute Plan: THIS IS A NEW PROBLEM RELATED TOHTN. AGREE WITH LASIX IV BID. ECHO IS NORMAL. NO SIGNS OF PUOLMONARY HTN. (2) Hypoxia Current Visit: Yes Status: Acute Plan: SHE HAS NO PNEUMONIA, PE, FIBROSIS, AND HAS VERY MILD AMOUNT OF FLUID IN LUNGS. THIS IS NOT ABLE TO EXPLAIN SEVERE HYPOXIA. SHE MAY HAVE SLEEP APNEA BUT SHE HAS NO PULMONARY HTN ON ECHOCARDIOGRAM. SHE MAY HAVE ASTHMA BUT HAS NO RHONCHI AND WHEEZES. I STARTED STEROIDS YESTERDAY AND SHE HAS BEEN ABLE TO LOWER OXYGEN USE TO 3 LT. WILL FU IN AM. ABG ORDER TODAY. ABG SHOWS HPERCAPNEA. I ORDERED BIPAP AND IT HAS HELPED. SHE MOST LIKELY HAS PICKWICKIAN SYNDROME AND SLEEP APNEA GIVING RISE TO HYPERCAPNEA AND DYSPNEA. (3) Asthma Current Visit: Yes Status: Acute Plan: THIS IS A NEW PROBLEM FOR HER. SHE IS NOT A SMOKER. SHE IS STILL VERY HYPOXIA. I DON'T SEE ANY OTHER REASONS. CHF IS MINOR COMPRED TO HER HYPOXIA. THERE IS NO PE, PNEUMONIA, COPD OR PULMONARY HTN. START NEBULZIER AND STEROIDS IV. (4) History of CVA (cerebrovascular accident) Onset Date: 02/02/17 Current Visit: No Status: Chronic Plan: NO CHANGES THIS HAPPENED A FEW YEARS AGO. RESIDUAL SI PARESTHESIA OF L SIDE OF BODY.
[2020-03-30] MEDS: METHYLPREDNISOLONE 40 MG INJ IV SCH ×2 (00:24→06:21)
[2020-03-30] MEDS: LEVALBUTEROL 0.63 MG/3 ML NEB NEB SCH ×4 (01:00→19:55)
[2020-03-30 05:01] LABS: Absolute Lymphocytes (CBC) 0.5 K/uL (0.7-4.9); Basophils % 0.2 % (0-1.3); Hematocrit 41.8 % (36.0-45.0); Lymphocytes % 5.1 % (15.3-44.8); RBC Red Blood Cell Count 4.79 M/uL (3.86-4.86)
[2020-03-30 05:19] LABS: BUN Blood Urea Nitrogen 34 mg/dL (7-18); Glucose Level 156 mg/dL (74-106); Potassium 3.9 mmol/L (3.5-5.1); Sodium Level 142 mmol/L (136-145)
[2020-03-30 05:32] LABS: Bicarbonate 44 mmol/L (21-32)
[2020-03-30] MEDS: carvediloL 25 MG TAB PO SCH ×2 (06:21→18:03)
[2020-03-30] MEDS: HYDRALAZINE HCL 25 MG TABLET PO SCH ×4 (06:21→18:13)
[2020-03-30] MEDS: CLONIDINE HCL 0.3 MG TAB PO SCH ×2 (06:21→20:30)
[2020-03-30] MEDS: CLOPIDOGREL 75 MG TABLET PO SCH (06:23)
[2020-03-30] MEDS ORDERED: NA CHLORIDE 0.9% 500 ML ONE (06:31)
[2020-03-30] MEDS ORDERED: NA CHLORIDE 0.9% 500 ML IV SCH (07:00)
[2020-03-30] MEDS: FAMOTIDINE 20 MG/2 ML VIAL IV SCH ×2 (08:31→20:30)
[2020-03-30] MEDS: ROSUVASTATIN 10 MG TAB PO SCH (08:31)
[2020-03-30] MEDS: ASPIRIN EC 325 MG TABLET PO SCH (08:31)
[2020-03-30] MEDS ORDERED: predniSONE 20 MG TAB PO SCH (09:00)
--- NOTE | 2020-03-30 10:15 | PN ---
Date of Progress Note: 03/29/2020 Ms. Larsen has been admitted by Dr. Sanders and followed by Dr. James for dyspnea on exertion, chest tightness and hypoxia that is so far unexplained. She had an echocardiogram showing a trace pericard ial effusion with normal ejection fraction. No pulmonary hypertension. Has multiple cardiac risk fa ctors for heart disease and elevated troponin. We discussed the case together, Dr. Sanders and I we ta lked to the patient, and I think it may be best to do a formal heart catheterization to rule out riana nary artery disease as we have no explanation for her dyspnea. She certainly could have Pickwickian syndrome because of her obesity with her pericardial effusion. Dr. Sanders and I thought may be a reas onable catheterization is normal to do a connective tissue disease workup. We will see what the cath eterization shows. MAUREEN/MARINA Voice ID: [id number] Report ID: [id number]
[2020-03-30] MEDS ORDERED: MIDAZOLAM HCL 2 MG/2 ML INJ ONE (14:10)
[2020-03-30] MEDS ORDERED: HEPA 1000U/500MLS 2,000 UNIT/1,000 ML BAG IV ONE (14:10)
[2020-03-30] MEDS ORDERED: HEPARIN 5000 UNIT/ML 1 ML VIAL ONE (14:10)
[2020-03-30] MEDS ORDERED: VERAPAMIL HCL 10 MG/4 ML VIAL IV ONE (14:10)
[2020-03-30] MEDS ORDERED: ATROPINE SULF 1 MG/10 ML SYR IV ONE (14:11)
[2020-03-30] MEDS ORDERED: FENTANYL CITR 100 MCG/2 ML ONE (14:11)
[2020-03-30 14:39] LABS: Arterial Blood Carboxyhemoglob 1.6 % (0-1.5); Blood Gas Oxyhemoglobin 86.1 % (94-97); Blood O2 Saturation 88.4 % (92-98.5)
[2020-03-30] MEDS ORDERED: HYDRALAZINE HCL 20 MG/ML VIAL ONE (15:09)
[2020-03-30] MEDS ORDERED: METOPROLOL TARTRATE 5 MG/5 ML INJ IV ONE (15:09)
--- NOTE | 2020-03-30 17:54 | P.PN ---
Subjective Date of Service: 03/30/20 Chief Complaint: SHE FEELS A LOT BETTER AFTER BIPAP USE Subjective: Improving SHE DOES NOT FEEL REALLY BAD BUT HER OXYGEN SATURATION DROPS TO 66% WITHOUT SUPPLY. I HAD HER USE BIPAP AND SHE SLEPT WELL , FELT GREAT AFTER. SHE SAYS SHE HAS NOT BEEN SLEEPING GOOD. SHE IS A LOT BETTER. NOW SHE UNDERSTANDS VALUE OF LOSING WEIGHT. Review of Systems 10-point ROS is otherwise unremarkable Physical Examination - Vital Signs Temperature: 99.1 F Blood Pressure: 179/99 Pulse: 86 Respirations: 16 Pulse Ox (%): 97 - Physical Exam General: Mild distress HEENT: Atraumatic, PERRLA, EOMI Neck: Supple, JVD not distended Respiratory: Clear to auscultation bilaterally, Normal air movement Cardiovascular: Regular rate/rhythm, Normal S1 S2 Gastrointestinal: Normal bowel sounds, No tenderness Musculoskeletal: No tenderness Integumentary: No rashes Neurological: Normal speech, Normal tone, Normal affect Lymphatics: No axilla or inguinal lymphadenopathy - Studies Medications List Reviewed: Yes Assessment And Plan - Current Problems (Diagnosis) (1) Diastolic CHF, acute Current Visit: Yes Status: Acute Plan: THIS IS A NEW PROBLEM RELATED TOHTN. AGREE WITH LASIX IV BID. ECHO IS NORMAL. NO SIGNS OF PUOLMONARY HTN. (2) Hypoxia Current Visit: Yes Status: Acute Plan: SHE HAS NO PNEUMONIA, PE, FIBROSIS, AND HAS VERY MILD AMOUNT OF FLUID IN LUNGS. THIS IS NOT ABLE TO EXPLAIN SEVERE HYPOXIA. SHE MAY HAVE SLEEP APNEA BUT SHE HAS NO PULMONARY HTN ON ECHOCARDIOGRAM. SHE MAY HAVE ASTHMA BUT HAS NO RHONCHI AND WHEEZES. I STARTED STEROIDS YESTERDAY AND SHE HAS BEEN ABLE TO LOWER OXYGEN USE TO 3 LT. WILL FU IN AM. ABG ORDER TODAY. ABG SHOWS HPERCAPNEA. I ORDERED BIPAP AND IT HAS HELPED. SHE MOST LIKELY HAS PICKWICKIAN SYNDROME AND SLEEP APNEA GIVING RISE TO HYPERCAPNEA AND DYSPNEA. HYPERCAPNEA HAS IMPROVED. CONTINUE BIPAP PRN. ADD ACETAZOLAMIDE FOR A DAY OR TWO. (3) Asthma Current Visit: Yes Status: Acute Plan: THIS IS A NEW PROBLEM FOR HER. SHE IS NOT A SMOKER. SHE IS STILL VERY HYPOXIA. I DON'T SEE ANY OTHER REASONS. CHF IS MINOR COMPRED TO HER HYPOXIA. THERE IS NO PE, PNEUMONIA, COPD OR PULMONARY HTN. START NEBULZIER AND STEROIDS IV. (4) History of CVA (cerebrovascular accident) Onset Date: 02/02/17 Current Visit: No Status: Chronic Plan: NO CHANGES THIS HAPPENED A FEW YEARS AGO. RESIDUAL SI PARESTHESIA OF L SIDE OF BODY.
[2020-03-30] MEDS: acetaZOLAMIDE 250 MG TAB PO SCH (20:30)
[2020-03-30] MEDS ORDERED: NITROGLYCERIN 0.4 MG/TAB SL PRN (22:38)
[2020-03-30] MEDS ORDERED: ACETAMINOPHEN 325 MG TABLET PO PRN (22:38)
[2020-03-31] MEDS: LEVALBUTEROL 0.63 MG/3 ML NEB NEB SCH ×4 (01:15→20:30)
[2020-03-31] MEDS: HYDRALAZINE HCL 25 MG TABLET PO SCH ×3 (01:17→17:42)
--- NOTE | 2020-03-31 01:29 | OP ---
Date of Procedure: 03/30/2020 Surgeon: CHRISTEN MAHER Procedure Performed: Selective coronary angiogram. Indication: [id number] myocardial infarction. Access: Right radial artery 6-Kyrgyz closed with TR band. Total Sedation Time: 50 minutes. Complications: None. Bleeding: Less than 5 mL. Description Of Procedure: After risks, benefits, and alternatives were explained, the patient agreed to the procedure and signed informed consent. We brought the patient into the cardiac catheterizati on laboratory, prepped and draped in usual sterile fashion. We used fentanyl and Versed in increment al doses to achieve adequate moderate sedation. Then, we accessed radial artery using pediatric micr opuncture kit and then placed a 6-Kyrgyz slender sheath and took a 5-Kyrgyz [place] catheter into the a ortic root over a J-wire, engaged left main and the right coronary artery and took standard views, an d then removed the catheter and the wire as well as the sheath and placed TR band with good hemostasi s. Findings: 1.Left main is normal. 2.LAD is large and normal. 3.Left circumflex is moderate-sized and normal. 4.RCA is large, dominant, and normal. Impression: Normal coronary arteries. Recommendation: Medical management. /MODL Voice ID: [id number] Report ID: [id number]
[2020-03-31 04:10] LABS: Absolute Lymphocytes (CBC) 0.9 K/uL (0.7-4.9); Basophils % 0.2 % (0-1.3); Hematocrit 43.4 % (36.0-45.0); Lymphocytes % 10.4 % (15.3-44.8); MPV 9.1 fL (7.6-11.3); RBC Red Blood Cell Count 4.98 M/uL (3.86-4.86)
[2020-03-31 04:48] LABS: Potassium 3.5 mmol/L (3.5-5.1)
[2020-03-31] MEDS: carvediloL 25 MG TAB PO SCH ×2 (05:06→17:43)
[2020-03-31 05:13] VITALS: BMI 40.5
[2020-03-31] MEDS: IPRATROPIUM BROM 0.5MG/2.5ML NEB PRN ×2 (07:50→13:30)
[2020-03-31] MEDS: ASPIRIN EC 325 MG TABLET PO SCH (09:11)
[2020-03-31] MEDS: CLOPIDOGREL 75 MG TABLET PO SCH (09:11)
[2020-03-31] MEDS: acetaZOLAMIDE 250 MG TAB PO SCH ×2 (09:11→21:15)
[2020-03-31] MEDS: ROSUVASTATIN 10 MG TAB PO SCH (09:12)
[2020-03-31] MEDS: CLONIDINE HCL 0.3 MG TAB PO SCH ×2 (09:13→21:13)
[2020-03-31] MEDS: FAMOTIDINE 20 MG/2 ML VIAL IV SCH ×2 (09:14→21:17)
--- NOTE | 2020-03-31 20:42 | P.PN ---
Subjective Date of Service: 03/31/20 Chief Complaint: SHE FEELS A LOT BETTER AFTER BIPAP USE Subjective: Improving SHE DOES NOT FEEL REALLY BAD BUT HER OXYGEN SATURATION DROPS TO 66% WITHOUT SUPPLY. I HAD HER USE BIPAP AND SHE SLEPT WELL , FELT GREAT AFTER. SHE SAYS SHE HAS NOT BEEN SLEEPING GOOD. SHE IS A LOT BETTER. NOW SHE UNDERSTANDS VALUE OF LOSING WEIGHT. TALKED TO RESPIRATORY THERAPIST ABOUT TREATMENT WITH AIR NOT OXYGEN. PULSE OX, ABG IN AM. Physical Examination - Vital Signs Temperature: 97.0 F Blood Pressure: 128/78 Pulse: 68 Respirations: 18 Pulse Ox (%): 97 - Physical Exam General: Mild distress, Obese HEENT: Atraumatic, PERRLA, EOMI Neck: Supple, JVD not distended Respiratory: Clear to auscultation bilaterally, Normal air movement Cardiovascular: Regular rate/rhythm, Normal S1 S2 Gastrointestinal: Normal bowel sounds, No tenderness Musculoskeletal: No tenderness Integumentary: No rashes Neurological: Normal speech, Normal tone, Normal affect Lymphatics: No axilla or inguinal lymphadenopathy - Studies Medications List Reviewed: Yes Assessment And Plan - Current Problems (Diagnosis) (1) Diastolic CHF, acute Current Visit: Yes Status: Acute Plan: THIS IS A NEW PROBLEM RELATED TOHTN. AGREE WITH LASIX IV BID. ECHO IS NORMAL. NO SIGNS OF PUOLMONARY HTN. (2) Hypoxia Current Visit: Yes Status: Acute Plan: SHE HAS NO PNEUMONIA, PE, FIBROSIS, AND HAS VERY MILD AMOUNT OF FLUID IN LUNGS. THIS IS NOT ABLE TO EXPLAIN SEVERE HYPOXIA. SHE MAY HAVE SLEEP APNEA BUT SHE HAS NO PULMONARY HTN ON ECHOCARDIOGRAM. SHE MAY HAVE ASTHMA BUT HAS NO RHONCHI AND WHEEZES. I STARTED STEROIDS YESTERDAY AND SHE HAS BEEN ABLE TO LOWER OXYGEN USE TO 3 LT. WILL FU IN AM. ABG ORDER TODAY. ABG SHOWS HPERCAPNEA. I ORDERED BIPAP AND IT HAS HELPED. SHE MOST LIKELY HAS PICKWICKIAN SYNDROME AND SLEEP APNEA GIVING RISE TO HYPERCAPNEA AND DYSPNEA. HYPERCAPNEA HAS IMPROVED. CONTINUE BIPAP PRN. ADD ACETAZOLAMIDE FOR A DAY OR TWO. ABG RA AGAIN IN AM. (3) Asthma Current Visit: Yes Status: Acute Plan: THIS IS A NEW PROBLEM FOR HER. SHE IS NOT A SMOKER. SHE IS STILL VERY HYPOXIA. I DON'T SEE ANY OTHER REASONS. CHF IS MINOR COMPRED TO HER HYPOXIA. THERE IS NO PE, PNEUMONIA, COPD OR PULMONARY HTN. START NEBULZIER AND STEROIDS IV. (4) History of CVA (cerebrovascular accident) Onset Date: 02/02/17 Current Visit: No Status: Chronic Plan: NO CHANGES THIS HAPPENED A FEW YEARS AGO. RESIDUAL SI PARESTHESIA OF L SIDE OF BODY.
[2020-04-01] MEDS: IPRATROPIUM BROM 0.5MG/2.5ML NEB PRN ×3 (01:40→13:11)
[2020-04-01] MEDS: LEVALBUTEROL 0.63 MG/3 ML NEB NEB SCH ×3 (01:40→13:11)
[2020-04-01] MEDS: HYDRALAZINE HCL 25 MG TABLET PO SCH ×3 (02:40→18:00)
[2020-04-01 04:07] LABS: Basophils % 0.3 % (0-1.3); Hematocrit 41.9 % (36.0-45.0); Lymphocytes % 18.1 % (15.3-44.8); MPV 9.3 fL (7.6-11.3); RBC Red Blood Cell Count 4.79 M/uL (3.86-4.86)
[2020-04-01 04:25] LABS: Potassium 3.7 mmol/L (3.5-5.1)
[2020-04-01] MEDS: carvediloL 25 MG TAB PO SCH ×2 (05:28→18:00)
[2020-04-01 06:02] LABS: Arterial Blood Carboxyhemoglob 1.5 % (0-1.5); Blood Gas Oxyhemoglobin 86.2 % (94-97); Blood O2 Saturation 88.4 % (92-98.5)
[2020-04-01] MEDS: FAMOTIDINE 20 MG/2 ML VIAL IV SCH (09:08)
[2020-04-01] MEDS: CLONIDINE HCL 0.3 MG TAB PO SCH (09:09)
[2020-04-01] MEDS: CLOPIDOGREL 75 MG TABLET PO SCH (09:09)
[2020-04-01] MEDS: ASPIRIN EC 325 MG TABLET PO SCH (09:09)
[2020-04-01] MEDS: acetaZOLAMIDE 250 MG TAB PO SCH (09:09)
[2020-04-01] MEDS: ROSUVASTATIN 10 MG TAB PO SCH (09:09)
[2020-04-01 12:05] VITALS: O2SAT 95
[2020-04-01 14:50] VITALS: TEMP 97
[2020-04-01 17:53] VITALS: BP 124/74
--- NOTE | 2020-04-01 21:11 | P.DS ---
Admission Date: 03/26/20 Discharge Date: 04/01/20 Disposition: ROUTINE DISCHARGE Discharge Condition: FAIR Reason for Admission: SHE FEELS A LOT BETTER AFTER BIPAP USE - Problems (1) Diastolic CHF, acute Status: Acute (2) Hypoxia Status: Acute (3) Asthma Status: Acute (4) History of CVA (cerebrovascular accident) Onset Date: 02/02/17 Status: Chronic Brief History of Present Illness: BINU IS A PATIENT WITH SEVERE HTN. DIASTOLIC CHF, HISTORY OF CVA WITH SENSOR DEFICIT TO L SIDE OF BODY THAT IS STILL THERE, COMES WITH DYSPNEA AT REST. SHE DENIES ANY CHEST PAIN. SHE IS HYPOXIC AT 66% ON RA. ER DOCTOR FOUND HER TO HAVE CHF THAT WAS MILD. I ASKED TO DO CT ANGIO MILD CHF WILL NOT EXPLAIN HYPOXIA OF 66%. PE STUDY IS NEG FOR PE OR PNEUMONIA OR MASS. SHE IS STILL HYPOXIC AT 66% ON RA SO WE WILL KEEP HER HERE LONGER. Hospital Course: MS VALENZUELA CAME WITH DYSPNEA. SHE HAD MILD CHF BUT BIGGER PROBLEM IS HYPERCAPNEA RELATED TO SLEEP APNEA. I REDUCED HER OXYGEN SUPPLY AND PUT HER ON BIPAP AND SHE WAS ABLE TO GO DOWN FROM 4 LT TO 2 LT NC. SHE WILL DO SLEEP STUDY. I HAD ADVISED THAT A LONG TIME AGO BUT SHE DID NOT DO YET. SHE WILL CONTINUE MEDICATIONS. I RAISED HYDRALAZINE AND IT CONTROLLED BP WELL. SHE HAS HOME OXYGEN AND WILL FU ON MONDAY SO WE CAN ARRANGE FOR SLEEP STUDY. 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 Vital Signs/Physical Exam: Temp Pulse Resp BP Pulse Ox 97 F 76 18 124/74 97 04/01/20 16:00 04/01/20 16:00 04/01/20 16:00 04/01/20 16:00 04/01/20 16:00 Laboratory Data at Discharge: WBC 5.7 K/uL (4.3-10.9) D 04/01/20 03:20 Hgb 12.9 g/dL (12.0-15.0) 04/01/20 03:20 Hct 41.9 % (36.0-45.0) 04/01/20 03:20 Plt Count 184 K/uL (152-406) 04/01/20 03:20 PT 14.3 SECONDS (9.5-12.5) H 03/26/20 12:10 INR 1.22 03/26/20 12:10 Sodium 143 mmol/L (136-145) 04/01/20 03:20 Potassium 3.7 mmol/L (3.5-5.1) 04/01/20 03:20 BUN 47 mg/dL (7-18) H 04/01/20 03:20 Creatinine 1.04 mg/dL (0.55-1.3) 04/01/20 03:20 Glucose 118 mg/dL (74-106) H 04/01/20 03:20 Magnesium 2.2 mg/dL (1.8-2.4) 03/26/20 12:10 Total Bilirubin 1.0 mg/dL (0.2-1.0) 03/26/20 12:10 AST 21 U/L (15-37) 03/26/20 12:10 ALT 24 U/L (12-78) 03/26/20 12:10 Alkaline Phosphatase 73 U/L (45-117) 03/26/20 12:10 Troponin I 0.30 ng/mL (0.0-0.045) H 03/27/20 06:05 Home Medications: Aspirin [Aspirin EC 325 MG] 325 mg PO DAILY 03/27/20 Carvedilol [Coreg] 25 mg PO BID 03/27/20 Clonidine HCl [Catapres] 0.3 mg PO BID 03/27/20 Ergocalciferol (Vitamin D2) [Vitamin D2] 1 cap PO SEECOM 03/27/20 Furosemide 20 mg PO [id number] #90 tablet 03/27/20 Irbesartan/Hydrochlorothiazide [Avalide 300-12.5 mg Tablet] 1 tab PO DAILY 03/27/20 Rosuvastatin Calcium 10 mg PO DAILY 03/27/20 Hydralazine HCl [Apresoline] 100 mg PO Q8H #90 tablet 04/01/20 acetaZOLAMIDE [Diamox*] 125 mg PO BID #60 tab 04/01/20 New Medications: Hydralazine HCl [Apresoline] 100 mg PO Q8H #90 tablet acetaZOLAMIDE [Diamox*] 125 mg PO BID #60 tab Furosemide 20 mg PO [id number] #90 tablet Patient Discharge Instructions: LOSE WEIGHT USING PALEO DIET. AVOID ALL FRIED FOOD, CHEESE, BUTTER , MARGARIN, FLOUR PRODUCTS LIKE BREAD, TORTILLAS ETC. Diet: AHA Followup: Torsten Sanders MD [Primary Care Provider] -
[2020-04-12] MEDS ORDERED: DRISDOL (VITAMIN D=ERGOCALCIFEROL) 50000 UNIT CAP PO SCH (09:00)
== END 2020-04-01 18:40 | disposition home or self-care (01) | DRG 286 ==
LOC: ER 10:30 → ERHOLD 23:33 → OBSVTOIN 23:33 → 2ND 03-27 07:41
PROVIDERS: ADMIT Internal Medicine; ATTEND Internal Medicine
PROC: 4A023N7 Measurement of Cardiac Sampling and Pressure, Left Heart, Percutaneous Approach (ICD-10-PCS; principal; 2020-03-30)
PROC: B2111ZZ Fluoroscopy of Multiple Coronary Arteries using Low Osmolar Contrast (ICD-10-PCS; 2020-03-30)
DX: I11.0 Hypertensive heart disease with heart failure (principal); I50.31 Acute diastolic (congestive) heart failure; Z68.41 Body mass index [BMI] 40.0-44.9, adult; I25.10 Atherosclerotic heart disease of native coronary artery without angina pectoris; J45.909 Unspecified asthma, uncomplicated; G47.30 Sleep apnea, unspecified; E78.5 Hyperlipidemia, unspecified; E66.9 Obesity, unspecified; I69.398 Other sequelae of cerebral infarction; R20.2 Paresthesia of skin; R09.02 Hypoxemia; Z79.899 Other long term (current) drug therapy; Z79.82 Long term (current) use of aspirin; Z90.711 Acquired absence of uterus with remaining cervical stump; Z90.49 Acquired absence of other specified parts of digestive tract; Z20.828 Contact with and (suspected) exposure to other viral communicable diseases; Z23 Encounter for immunization
CPT/HCPCS: 36415; 71045; 71275; 80048; 80076; 81003; 82805; 83735; 83880; 84484; 85025; 85610; 90471; 93005; 93306; 93454; 94640; 94660; 94760; 96374; 99285; C1893; J0360; J1644; J1650; J1940; J2250; J2920; J3010; J7040; J7512; Q2035; Q9967; U0003